=== PATIENT | male | born 1990 | race Caucasian/White ===

== ENCOUNTER 2025-08-02 19:44 | Observation (INO) ==
--- NOTE | 2025-08-02 19:54 | Emergency Department Note ---
Impression & Plan New onset atrial fibrillation, Heart palpitations, Hypotension ED Provider Note NAME: EDGARDO RUELAS AGE: 34 SEX: M : 1990 ARRIVES VIA: Walk-In INFORMANT: The patient himself and his mother. ED PROVIDER(S): Sherita Mancia PA-C, [Rachid Cardozo, DO] CHIEF COMPLAINT: Check heart rate HISTORY OF PRESENTING ILLNESS: The patient is a 34-year-old male with no significant past medical history who presents to the emergency department with complaints of heart palpitations that began a couple of hours ago and are persistent. He was driving when this occurred. He states that he has had heart palpitations before however they have never been this persistent. He also reports an aching chest discomfort that he rates a 2/10. 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 He denies shortness of breath, cardiac history, URI symptoms, abdominal pain, nausea, vomiting. REVIEW OF SYSTEMS: See HPI for pertinent positives and pertinent negatives. ALLERGIES: NKDA MEDICATIONS: Denies currently taking medication. PAST MEDICAL HISTORY: Denies past medical history. PHYSICAL EXAM: VITALS: Vitals are noted on the nurses note and reviewed by myself. Tachycardic. After IV placement hypotensive. GENERAL: 34-year-old male, lying comfortably in bed, in no acute distress, nondiaphoretic, well-developed well-nourished. SKIN: Capillary refill less than 2 seconds. HEENT: Normocephalic. PERRLA. EOMI. Nares patent. Mucous membranes moist. Neck is supple without nuchal rigidity. HEART: Normal S1 and S2. No murmurs, gallops, or rubs. LUNGS: CTA BL without wheezes, rales or rhonchi. No retractions or accessory muscle use. ABDOMEN: Soft, nontender, without masses or organomegaly. No guarding or rebound tenderness. MUSCULOSKELETAL: No gross musculoskeletal defects. No pedal edema. No calf tenderness. NEURO: Patient was alert and oriented to person place and time. No focal neurological deficits. DIFFERENTIAL DIAGNOSIS: Differential diagnosis includes acute coronary syndrome, atrial fibrillation, PVCs, anxiety, pulmonary embolism, thyroid disorder pneumothorax, pericarditis, myocarditis, endocarditis, musculoskeletal pain, GERD, costochondritis, among others. ED COURSE AND MEDICAL DECISION MAKING: MEDICATIONS GIVEN: 1 L normal saline, 1 g magnesium IV, 1 L normal saline, Lopressor 5 mg IV (could not give as patient was hypotensive). MONITOR: Continuous gambling monitor: Order was placed for continuous gambling monitor. Patient was placed on the gambling monitor and continuous pulse ox. Patient was noted to be in normal sinus rhythm at an initial rate of 140 bpm per my interpretation. EKG: EKG was interpreted by myself as atrial fibrillation with RVR. No previous EKG for comparison. No acute ischemic change. The patient does not have a history of atrial fibrillation. QTc 372. INTERPRETATION OF LABS: I interpreted the labs with full lab results as below in the lab section of this note. Pertinent lab results discussed in the MDM section below. INTERPRETATION OF IMAGING: I informally interpreted the patient's chest x-ray which does not show evidence of obvious pneumothorax, consolidation, or pleural effusion and reviewed formal report below. ESCALATION OF CARE CONSIDERED: Escalation of care considered as the patient presents to the ER with new onset A-fib RVR. Patient was hypotensive after IV placement and did not improve with 2 L of fluids. He was given IV magnesium however was not able to receive Lopressor due to his low pressure. He was admitted to medicine for further management and treatment of new onset atrial fibrillation. CONSULTATIONS: On-call [facility] hospitalist - Presented the patient to the provider. They agreed to evaluation and admission. I have personally spent greater than 30 minutes of critical care time in the direct management of this patient. This includes bedside care, interpretation of diagnostic studies, and testing, discussion with consultants, patient, and family members, and other required patient management activities. This 30 minutes is in excess of all separately billable procedures. MDM SUMMARY: I evaluated the 34-year-old male who presents to the emergency department due to chest palpitations that have been persistent, chest discomfort, and left arm aching. See HPI and PE above. Patient initially tachycardic. EKG obtained with a rate of 140 bpm atrial fibrillation with RVR. No previous EKG for comparison. Patient denies history of atrial fibrillation or cardiac history. IV access was established and labs were obtained. When the IV was placed to the patient became diaphoretic and hypotensive. He did not have a syncopal episode. He was given 1 L normal saline and 1 g magnesium IV. Mild leukocytosis 11.33. Hemodynamically stable. Coagulation panel within normal limits. D-dimer<190. No electrolyte abnormality. No RADHA. Magnesium 2.0. Normal LFTs. Troponin 6.6. TSH 2.361. All labs reviewed with the patient. Chest x-ray shows bronchitis, no other findings. No improvement in pressure with 1 L. Additionally a second liter was provided. I did discuss this case with my attending. Patient is stable otherwise and symptoms controlled. This is a new acute onset within the last couple of hours. I do believe attempting medical management is warranted at this time. 5 mg Lopressor ordered however due to patient's hypotension was not able to receive the dose. [place] [address]. After the patient received the second liter of fluids pressure remains 80/50-90/60. I did have a discussion with the patient regarding admission to the hospital for further evaluation and management of atrial fibrillation. He is agreeable and all questions answered. Consultation with on-call hospitalist can be seen in detail above. 3rd L of fluid was ordered by the hospitalist. The patient was admitted in stable condition. DIAGNOSIS: New onset atrial fibrillation, heart palpitations, hypotension The chart was completed utilizing [employer] Speech voice recognition software. Grammatical errors, random word insertions, pronoun errors, and incomplete sentences are an occasional consequence of this system due to software limitations, ambient noise, and hardware issues. Any formal questions or concerns about the content, text, or information contained within the body of this dictation should be directly addressed to the provider for clarification. TREATMENT PLAN/DISCHARGE INSTRUCTIONS: The patient was admitted to medicine. See that note for further management and disposition. Past Med/Surg History Problem List (Updated 08/05/25 @ 15:23 by Sherita Mancia PA-C) Pectus excavatum Hypotension (Acute) Heart palpitations (Acute) New onset atrial fibrillation (Acute) Social History Smoking Status: Never smoker Hx Alcohol Use: No Hx Substance Use: No Preferred Language: Mohawk Communication Ability: Effective Pourer Required: No Beliefs That Will Affect Care: None Current Living Situation: Parent Feels Safe at Home: Yes Assistive Devices: None Allergies Allergies Allergy/AdvReac Type Severity Reaction Status Date / Time No Known Allergies Allergy Unverified 05/26/11 21:00 Home Meds Home Medications Medication Instructions Recorded Confirmed No Known Home Medications 08/02/25 08/02/25 Results & Data (ED) Vital Signs Vital Signs - 24 hr 08/02/25 19:46 Temperature 36.4 C L Temperature Source Temporal Artery Scan Pulse Rate 106 H Pulse Rhythm Regular Pulse Strength Normal Respiratory Rate 18 Respiratory Effort / Characteristics Non-Labored Spontaneous Respiratory Depth Normal Respiratory Pattern Regular Blood Pressure 128/88 Blood Pressure Mean 101 Blood Pressure Position Sitting Pulse Oximetry 95 Oxygen Delivery Method Room Air Sepsis Recent Fever Within 48 Hours No Sepsis New/Unexplained Change in Mental Status N/A Sepsis Action Taken by Nursing No Action Required Laboratory Data 08/03/25 05:45 08/03/25 05:45 Lab Results 08/02/25 08/02/25 Range/Units 19:55 21:01 WBC 11.33 H (4.8-10.8) K/ul RBC 5.09 (4.70-6.10) M/uL Hgb 15.6 (14.0-18.0) g/dL Hct 43.7 (42.0-52.0) % MCV 85.9 (80.0-100.0) fL MCH 30.6 (25.0-34.0) pg MCHC 35.7 (32.0-36.0) g/dL RDW Std Deviation 39.8 (36.4-46.3) fL RDW Coeff of Dragan 12.7 (11.5-14.5) % Plt Count 276 (130-400) K/uL MPV 9.9 (9.4-12.4) fL Immature Gran % (Auto) 0.4 % Neut % (Auto) 66.3 % Lymph % (Auto) 21.6 % [place] % (Auto) 9.5 % Eos % (Auto) 1.8 % Baso % (Auto) 0.4 % Neut # (Auto) 7.50 H (1.40-6.50) K/uL Lymph # (Auto) 2.45 (1.20-3.40) K/uL [place] # (Auto) 1.08 H (0.11-0.59) K/uL Eos # (Auto) 0.20 (0.00-0.50) K/uL Baso # (Auto) 0.05 (0.00-0.20) K/uL Immature Gran # (Auto) 0.05 (0.01-0.20) K/uL PT 10.6 (9.0-12.0) Seconds INR 1.0 (0.9-1.1) APTT 26 (21-31) Seconds PTT Ratio 1.0 D-Dimer < 190 (0-500) ug/L FEU Sodium 140 (136-145) mmol/L Potassium 4.0 (3.5-5.1) mmol/L Chloride 104 (98-107) mmol/L Carbon Dioxide 30 (21-32) mmol/L Anion Gap 6 (3-11) BUN 17 (6-23) mg/dl Creatinine 1.02 (0.6-1.4) mg/dl Est Cr Clr Drug Dosing 114.1 ml/min eGFR 100.15 BUN/Creatinine Ratio 16.7 (10-20) Glucose 94 (70-99(Fasting)) mg/dl Calcium 9.4 (8.6-10.3) mg/dl Magnesium 2.0 (1.7-2.4) mg/dl Total Bilirubin 0.5 (0.2-1.0) mg/dl AST 22 (13-39) U/L ALT 28 (7-52) U/L Alkaline Phosphatase 73 (34-104) U/L Troponin I High Sens 6.6 (0-20) pg/ml Total Protein 7.4 (6.0-8.3) gm/dl Albumin 4.4 (3.4-5.0) gm/dl Globulin 3.0 (2.5-4.0) gm/dl Albumin/Globulin Ratio 1.5 (0.9-2) Lipase 18 (11-82) U/L TSH 2.361 (0.300-4.500) uIu/ml Random Cortisol 10.61 mcg/dl Administered Medications Discontinued Medications Aspirin (Aspirin 81 Mg Ectab) 81 mg PO DAILY ERICA Stop: 09/02/25 08:59 Last Admin: 08/03/25 10:23 Dose: 81 mg Documented By: dll Aspirin (Aspirin 81 Mg Chew) 324 mg PO NOW STA Stop: 08/03/25 00:32 Last Admin: 08/03/25 01:16 Dose: 324 mg Documented By: alt Sodium Chloride (Nss) 1,000 mls @ 999 mls/hr IV .Q1H1M ONE Stop: 08/02/25 21:04 Last Infusion: 08/02/25 21:08 Dose: Infused Documented By: Admin: 08/02/25 20:21 Dose: 999 mls/hr Documented By: CARMEN Magnesium Sulfate/Dextrose (Magnesium Sulfate / D5w) 1 gm in 100 mls @ 100 mls/hr IV NOW STA Stop: 08/02/25 21:07 Last Infusion: 08/02/25 21:25 Dose: Infused Documented By: Admin: 08/02/25 20:21 Dose: 100 mls/hr Documented By: CARMNE Sodium Chloride (Nss) 1,000 mls @ 999 mls/hr IV .Q1H1M ONE Stop: 08/02/25 22:05 Last Infusion: 08/02/25 22:32 Dose: Infused Documented By: Admin: 08/02/25 21:08 Dose: 999 mls/hr Documented By: CARMEN Sodium Chloride (Nss) 1,000 mls @ 999 mls/hr IV .Q1H1M ERICA Stop: 08/02/25 23:22 Last Infusion: 08/03/25 00:17 Dose: Infused Documented By: alt Admin: 08/02/25 22:33 Dose: 999 mls/hr Documented By: CARMEN Lactated Ringer's (Lr) 1,000 mls @ 125 mls/hr IV .Q8H ERICA Stop: 08/03/25 07:41 Last Infusion: 08/03/25 07:49 Dose: Infused Documented By: dll Admin: 08/02/25 23:59 Dose: 125 mls/hr Documented By: alt Metoprolol Tartrate (Metoprolol Tartrate 1 Mg/Ml Vial) 5 mg IV NOW STA Stop: 08/02/25 20:06 Last Admin: 08/02/25 20:22 Dose: Not Given Documented By: CARMEN Discharge Plan Visit Data Chief Complaint: Cardiac Assessment Stated Complaint: CHECK HEART RATE ( 128/86) ED Provider: Rachid Cardozo ED Midlevel Provider: Sherita Mancia Discharge Problem: New onset atrial fibrillation, Heart palpitations, Hypotension Patient Disposition: Admitted As Inpatient Condition: Good Discharge Instructions Interventions: ED Discharge Assessment Last Done: 08/02/25 23:26 Discharge Problem: Hypotension Qualifiers: Hypotension type: unspecified hypotension type Qualified Code(s): I95.9 - Hypotension, unspecified
[2025-08-02] MEDS: MAGNESIUM SULFATE / D5W 1 GM/100 ML BAG IV STA (20:21)
[2025-08-02] MEDS: SODIUM CHLORIDE 0.9% 1,000 ML IV ONE ×2 (20:21→21:08)
[2025-08-02] MEDS: METOPROLOL TARTRATE 1 MG/ML VIAL IV STA (20:22)
[2025-08-02 20:24] LABS: Hematocrit (blood only) 43.7 % (42.0-52.0); Hemoglobin 15.6 g/dL (14.0-18.0); Immature Granulocytes # (auto) 0.05 K/uL (0.01-0.20); Immature Granulocytes % (auto) 0.4 %; Mean Corpuscular Hemoglobin 30.6 pg (25.0-34.0); Mean Corpuscular Volume 85.9 fL (80.0-100.0); Platelet Count 276 K/uL (130-400); RDW Standard Deviation 39.8 fL (36.4-46.3); Red Blood Count 5.09 M/uL (4.70-6.10); White Blood Count 11.33 K/ul (4.8-10.8)
[2025-08-02 20:45] LABS: Alanine Aminotransferase 28.0 U/L (7-52); Albumin Globulin Ratio 1.5 (0.9-2); Albumin Level 4.4 gm/dl (3.4-5.0); Alkaline Phosphatase 73.0 U/L (34-104); Anion Gap 6.0 (3-11); Bilirubin,Total 0.5 mg/dl (0.2-1.0); Blood Urea Nitrogen 17.0 mg/dl (6-23); Calcium 9.4 mg/dl (8.6-10.3); Carbon Dioxide 30.0 mmol/L (21-32); Chloride 104.0 mmol/L (98-107); Creatinine Clr Calc Pharmacy 114.1 ml/min; Globulin 3.0 gm/dl (2.5-4.0); Glucose 94.0 mg/dl (70-99(Fasting)); Lipase 18.0 U/L (11-82); Potassium 4.0 mmol/L (3.5-5.1); Sodium 140.0 mmol/L (136-145); Total Protein 7.4 gm/dl (6.0-8.3)
[2025-08-02 21:02] LABS: INR 1.0 (0.9-1.1); Partial Thromboplastin Time 26 Seconds (21-31); Prothrombin Time 10.6 Seconds (9.0-12.0)
[2025-08-02 22:21] LABS: Magnesium 2.0 mg/dl (1.7-2.4)
--- NOTE | 2025-08-02 22:22 | History & Physical Report ---
Date of Service August 02, 2025 Assessment & Plan (1) New onset atrial fibrillation: (2) Heart palpitations: (3) Hypotension: Plan Patient is a 34-year-old man without significant past medical history. Patient came into the ED due to aching substernal 2/10 chest pain and heart palpitations that have been consistent since . He was found to be in A-fib with RVR, rates as high as 145 in the ED. Patient unfortunately became hypotensive after blood work and reported to be as low as 79/62 in the ED. He is being admitted for new onset A-fib. #New onset a fib - Electrolytes stable, renal function stable, no signs of infectious etiology, Troponin 6.6. - TSH, UA, covid/flu/rsv swab ordered - [id number]-[id number] score 0 = 0.3% stroke risk per year - not recommended to anticoagulate, will defer at this time - HAS-BLED score 0 - loaded with ASA and start daily baby aspirin - echocardiogram ordered - cardiology consulted - will continue IVF and recheck BMP and mag at midnight and with AM labs - if persistently tachycardic after IVF resuscitation - consider digoxin - Continue to monitor on Telemetry #hypotension - likely vasovagal. Improving with IVF. Albumin 4.4. - random cortisol ordered by ED - received 2L NSS bolus in ED, additional 1 L on admission - continue fluid resuscitation with LR @ 125 ml/hr VTE ppx: SCDs, low risk Dispo: PCU, obs - possible dc home 08/03 Admission and Anticipated Discharge Date Admission Date: 08/02/25 History of Present Illness Chief Complaint: cardiac assessment Primary Care Provider: NO PCP Patient is a 34-year-old man without significant past medical history. Patient came into the ED due to aching substernal 2/10 chest pain and heart palpitations that have been consistent since . He was found to be in A-fib with RVR, rates as high as 145 in the ED. Patient unfortunately became hypotensive after blood work and reported to be as low as 79/62 in the ED. He is being admitted for new onset A-fib. Patient seen at bedside with his mother present. He endorses the above. He stated he was going about his normal day and driving when this began. There is nothing out of the ordinary today, he did not engage in any strenuous exercise size, denies any alcohol or drug use. He denies any dizziness, lightheadedness, shortness of breath, nausea, vomiting, diarrhea. He ate usual Thanksgiving dinner yesterday and denies drinking any alcohol. He denies any nicotine use. He denies any past medical history of arrhythmias, heart conditions, thyroid disorders, HTN, DM. He does endorse that his maternal grandparents both have heart arrhythmias and have pacemakers, his maternal grandfather had a heart attack when he was 50. Patient denies any oxygen use at baseline. He does not use any medications at home. He wishes to be full code. Allergies Allergy/AdvReac Type Severity Reaction Status Date / Time No Known Allergies Allergy Unverified 05/26/11 21:00 Home Medications Medication Instructions Recorded Confirmed Type No Known Home Medications 08/02/25 08/02/25 History Past Med/Surg History Problem List (Updated 08/03/25 @ 15:31 by Daryn Hargrove MD) Pectus excavatum Hypotension Heart palpitations New onset atrial fibrillation Social History Smoking Status: Never smoker Hx Alcohol Use: No Hx Substance Use: No Preferred Language: Czech Communication Ability: Effective Store Operations Specialist Required: No Beliefs That Will Affect Care: None Current Living Situation: Parent Feels Safe at Home: Yes Assistive Devices: None Review of Systems Review of Systems: see HPI Physical Exam Physical Exam: The patient is awake, alert and oriented 3, well developed and well nourished, normocephalic and atraumatic, in no acute distress. Non-toxic appearing. HEENT- EOMI, mucous membranes moist. Hearing grossly intact. Heart-normal S1 and S2. No murmurs, rubs or gallops. Lungs-clear bilaterally, no respiratory distress, no accessory muscle use. Abdomen-normal bowel sounds and soft. No ascites noted. Non-tender. Extremities- no clubbing, cyanosis, or edema. Rheumatologic-normal range of motion. Psychiatric-normal affect. Results & Data Results & Data Vital Signs (Past 12 Hours) Vital Signs Temp Pulse Pulse Resp BP BP Pulse Ox 08/02/25 22:05 98/72 L 08/02/25 22:05 98/72 L 08/02/25 22:03 136 H 20 98 08/02/25 22:01 109/59 L 08/02/25 22:01 109/59 L 08/02/25 22:01 109/59 L 08/02/25 22:01 109/59 L 08/02/25 22:01 109/59 L 08/02/25 22:00 133 H 23 98 08/02/25 21:55 104/53 L 08/02/25 21:55 104/53 L 08/02/25 21:55 104/53 L 08/02/25 21:55 104/53 L 08/02/25 21:55 104/53 L 08/02/25 21:54 108 H 23 95 08/02/25 21:51 100 H 17 98 08/02/25 21:50 90/58 L 08/02/25 21:50 90/58 L 08/02/25 21:50 90/58 L 08/02/25 21:50 90/58 L 08/02/25 21:50 90/58 L 08/02/25 21:48 105 H 19 99 08/02/25 21:45 98/60 L 08/02/25 21:45 98/60 L 08/02/25 21:45 98/60 L 08/02/25 21:45 98/60 L 08/02/25 21:45 98/60 L 08/02/25 21:45 116 H 20 98 08/02/25 21:42 106 H 20 100 08/02/25 21:40 102/63 08/02/25 21:40 102/63 08/02/25 21:40 102/63 08/02/25 21:40 102/63 08/02/25 21:40 102/63 08/02/25 21:39 115 H 22 99 08/02/25 21:35 97/66 L 08/02/25 21:35 97/66 L 08/02/25 21:35 97/66 L 08/02/25 21:35 97/66 L 08/02/25 21:35 97/66 L 08/02/25 21:33 105 H 22 99 08/02/25 21:30 96/60 L 08/02/25 21:30 96/60 L 08/02/25 21:30 96/60 L 08/02/25 21:30 96/60 L 08/02/25 21:30 96/60 L 08/02/25 21:30 118 H 24 98 08/02/25 21:25 99/58 L 08/02/25 21:25 99/58 L 08/02/25 21:25 99/58 L 08/02/25 20:31 98 08/02/25 20:21 97 H 22 94 08/02/25 20:20 109/68 08/02/25 20:20 109/68 08/02/25 20:20 109/68 08/02/25 20:20 109/68 08/02/25 20:20 109/68 08/02/25 20:18 99 H 22 98 08/02/25 20:17 104/69 08/02/25 20:17 104/69 08/02/25 20:17 104/69 08/02/25 20:15 79/62 L 08/02/25 20:15 79/62 L 08/02/25 20:15 103 H 22 91 08/02/25 20:15 89 16 79/62 L 95 08/02/25 20:12 104 H 24 99 08/02/25 20:10 98/62 L 08/02/25 20:10 98/62 L 08/02/25 20:10 98/62 L 08/02/25 20:10 98/62 L 08/02/25 20:10 98/62 L 08/02/25 20:09 117 H 19 95 08/02/25 20:06 109/69 08/02/25 20:06 109/69 08/02/25 20:06 109/69 08/02/25 20:06 109/69 08/02/25 20:06 97 H 24 95 08/02/25 20:05 105/58 L 08/02/25 20:03 86 14 96 08/02/25 20:00 84/61 L 08/02/25 20:00 84/61 L 08/02/25 20:00 84/61 L 08/02/25 20:00 84/61 L 08/02/25 20:00 84/61 L 08/02/25 20:00 92 H 18 100 08/02/25 19:54 132 H 23 08/02/25 19:53 145 H 08/02/25 19:51 136/82 08/02/25 19:51 136/82 08/02/25 19:51 136/82 08/02/25 19:51 136/82 08/02/25 19:51 136/82 08/02/25 19:46 36.4 C L 106 H 18 128/88 95 O2 Del Method 08/02/25 22:05 08/02/25 22:05 08/02/25 22:03 08/02/25 22:01 08/02/25 22:01 08/02/25 22:01 08/02/25 22:01 08/02/25 22:01 08/02/25 22:00 08/02/25 21:55 08/02/25 21:55 08/02/25 21:55 08/02/25 21:55 08/02/25 21:55 08/02/25 21:54 08/02/25 21:51 08/02/25 21:50 08/02/25 21:50 08/02/25 21:50 08/02/25 21:50 08/02/25 21:50 08/02/25 21:48 08/02/25 21:45 08/02/25 21:45 08/02/25 21:45 08/02/25 21:45 08/02/25 21:45 08/02/25 21:45 08/02/25 21:42 08/02/25 21:40 08/02/25 21:40 08/02/25 21:40 08/02/25 21:40 08/02/25 21:40 08/02/25 21:39 08/02/25 21:35 08/02/25 21:35 08/02/25 21:35 08/02/25 21:35 08/02/25 21:35 08/02/25 21:33 08/02/25 21:30 08/02/25 21:30 08/02/25 21:30 08/02/25 21:30 08/02/25 21:30 08/02/25 21:30 08/02/25 21:25 08/02/25 21:25 08/02/25 21:25 08/02/25 20:31 Room Air 08/02/25 20:21 08/02/25 20:20 08/02/25 20:20 08/02/25 20:20 08/02/25 20:20 08/02/25 20:20 08/02/25 20:18 08/02/25 20:17 08/02/25 20:17 08/02/25 20:17 08/02/25 20:15 08/02/25 20:15 08/02/25 20:15 08/02/25 20:15 Room Air 08/02/25 20:12 08/02/25 20:10 08/02/25 20:10 08/02/25 20:10 08/02/25 20:10 08/02/25 20:10 08/02/25 20:09 08/02/25 20:06 08/02/25 20:06 08/02/25 20:06 08/02/25 20:06 08/02/25 20:06 08/02/25 20:05 08/02/25 20:03 08/02/25 20:00 08/02/25 20:00 08/02/25 20:00 08/02/25 20:00 08/02/25 20:00 08/02/25 20:00 08/02/25 19:54 08/02/25 19:53 08/02/25 19:51 08/02/25 19:51 08/02/25 19:51 08/02/25 19:51 08/02/25 19:51 08/02/25 19:46 Room Air Laboratory Results Reviewed CBC, PT/INR, d-dimer CMP, troponin ordered mag, TSH, UA, covid/flu/rsv swab Diagnostic Findings reviewed CXR Medications Administered ED - 2L NSS bolus, mag 1 g IV ECG Additional Comments: a fib with rvr, rate 108 qtc 431 Code Status & VTE Plan Code Status full code VTE Prophylaxis Plan VTE Prophylaxis will be ordered: Yes Supervising Physician Co-Signing Physician Notes Attending addendum: I have physically seen this patient, have supervised the medical residents activities, and agree with the H&P unless as otherwise noted. Assessment and Plan: The patient is a 34-year-old male with no significant past medical history who presents to the emergency department complaining of a substernal aching chest pain and palpitations that have been constant since about 2:30 in the afternoon . EKG in the emergency department were atrial fibrillation at a rate of 108 with PVCs, without acute ST-T changes. New onset atrial fibrillation with RVR- Potassium 4.0, magnesium 2.0. Troponin 6.6 Chest x-ray negative The patient will be admitted to telemetry for serial cardiac enzymes, serial EKG's, cardiac rhythm monitoring and a 2-D echocardiogram with Dopplers. Give aspirin 324 mg now, and 81 mg every morning Status post 2 L normal saline bolus in the ED Will give additional 1 L normal saline now, then LR 125 mL/h Address tachycardia primarily with IV fluid rehydration Pressure is borderline in the 90s systolic. Digoxin is an option if heart rate becomes uncontrolled. No indication for cardioversion at this time No alcohol use, Therefore not holiday heart. No family history of cardiac arrhythmias Consult cardiology PG Care Time/CCT Total # of Minutes Spent Total Time Spent with Patient: Total time spent is greater than 50% in coordination of care (as documented) at patient's floor/unit and/or counseling patient: Coding Level of Care Code 12101 INT INP/OBS CARE 3/75MIN Diagnoses New onset atrial fibrillation I48.91 Heart palpitations R00.2 Hypotension I95.9
[2025-08-02] MEDS: SODIUM CHLORIDE 0.9% 1,000 ML IV SCH (22:33)
[2025-08-02 22:37] LABS: Thyroid Stimulating Hormone 2.361 uIu/ml (0.300-4.500)
[2025-08-02 23:39] LABS: Appearance Urine Clear (Clear); Glucose Urine UA Negative (Negative)
[2025-08-02] MEDS ORDERED: ACETAMINOPHEN 325 MG TAB PO PRN (23:42)
[2025-08-02] MEDS ORDERED: DOCUSATE SODIUM 100 MG CAP PO PRN (23:42)
[2025-08-02] MEDS ORDERED: ONDANSETRON INJ 2 MG/ML 2 ML VIAL IV PRN (23:42)
[2025-08-02] MEDS ORDERED: MELATONIN 3 MG TAB PO PRN (23:42)
[2025-08-02 23:48] LABS: Influenza A virus by PCR Negative (Neg); Influenza B virus by PCR Negative (Neg); SARS CoV2 RNA(COVID-19) Ceph NEGATIVE (Negative)
[2025-08-02] MEDS: LACTATED RINGER'S 1,000 ML IV SCH (23:59)
[2025-08-03 01:12] LABS: Anion Gap 6.0 (3-11); Blood Urea Nitrogen 13.0 mg/dl (6-23); Calcium 8.1 mg/dl (8.6-10.3); Carbon Dioxide 26.0 mmol/L (21-32); Chloride 108.0 mmol/L (98-107); Creatinine Clr Calc Pharmacy 126.9 ml/min; Glucose 99.0 mg/dl (70-99(Fasting)); Magnesium 1.9 mg/dl (1.7-2.4); Potassium 3.9 mmol/L (3.5-5.1); Sodium 140.0 mmol/L (136-145)
[2025-08-03] MEDS: ASPIRIN 81 MG CHEW PO STA (01:16)
--- NOTE | 2025-08-03 01:20 | XRay Report ---
Exam(s): XR CXR 1 VIEW EXAM: XR Chest, 1 View CLINICAL HISTORY: Reason for exam: palpitations, chest pain. TECHNIQUE: Frontal view of the chest. COMPARISON: No relevant prior studies available. FINDINGS: Lungs: Mild to moderate peribronchial thickening of the central bronchi. No consolidation. Pleural space: Unremarkable. No pneumothorax. Heart: Unremarkable. No cardiomegaly. Mediastinum: Unremarkable. Normal mediastinal contour. Bones/joints: Unremarkable. No acute fracture. IMPRESSION: Bronchitis, which may be of infectious or inflammatory etiologies. No consolidation or pleural effusion. Electronically signed by: Kristy Aguiar MD 08/03/25 01:19 AM
[2025-08-03 06:35] LABS: Hematocrit (blood only) 40.5 % (42.0-52.0); Hemoglobin 13.9 g/dL (14.0-18.0); Immature Granulocytes # (auto) 0.03 K/uL (0.01-0.20); Immature Granulocytes % (auto) 0.4 %; Mean Corpuscular Hemoglobin 30.2 pg (25.0-34.0); Mean Corpuscular Volume 87.9 fL (80.0-100.0); Platelet Count 223 K/uL (130-400); RDW Standard Deviation 42.1 fL (36.4-46.3); Red Blood Count 4.61 M/uL (4.70-6.10); White Blood Count 8.08 K/ul (4.8-10.8)
[2025-08-03 07:16] LABS: Anion Gap 5.0 (3-11); Blood Urea Nitrogen 11.0 mg/dl (6-23); Calcium 8.4 mg/dl (8.6-10.3); Carbon Dioxide 25.0 mmol/L (21-32); Chloride 110.0 mmol/L (98-107); Creatinine Clr Calc Pharmacy 132.9 ml/min; Glucose 96.0 mg/dl (70-99(Fasting)); Magnesium 1.9 mg/dl (1.7-2.4); Potassium 4.1 mmol/L (3.5-5.1); Sodium 140.0 mmol/L (136-145)
--- NOTE | 2025-08-03 08:22 | Electrocardiogram Report ---
Test Reason : Blood Pressure : */* mmHG Vent. Rate : 140 BPM Atrial Rate : * BPM P-R Int : * ms QRS Dur : 78 ms QT Int : 244 ms P-R-T Axes : * 2 51 degrees QTcB Int : 372 ms Atrial fibrillation with rapid ventricular response Abnormal ECG No previous ECGs available Confirmed by Daryn Hargrove ([id number]) on 08/03/2025 8:22:12 AM Referred By: REFERRED SELF Confirmed By: Daryn Hargrove
[2025-08-03] MEDS: ASPIRIN 81 MG ECTAB PO SCH (10:23)
--- NOTE | 2025-08-03 11:50 | XCELERA ---
[id number]
--- NOTE | 2025-08-03 14:18 | Electrocardiogram Report ---
Test Reason : Blood Pressure : */* mmHG Vent. Rate : 108 BPM Atrial Rate : * BPM P-R Int : * ms QRS Dur : 88 ms QT Int : 322 ms P-R-T Axes : * -8 58 degrees QTcB Int : 431 ms Atrial fibrillation with rapid ventricular response with premature ventricular or aberrantly conducte d complexes Abnormal ECG When compared with ECG of 02-Aug-2025 19:52, No significant change was found Confirmed by Daryn Hargrove ([id number]) on 08/03/2025 2:18:03 PM Referred By: REFERRED SELF Confirmed By: Daryn Hargrove
--- NOTE | 2025-08-03 15:36 | Cardiology Consultation ---
Date of Consultation August 03, 2025 Assessment & Plan (1) New onset atrial fibrillation: (2) Pectus excavatum: Plan 1. Atrial fibrillation: Paroxysmal. Unclear etiology. He is not appear to have any traditional risk factors for atrial fibrillation. Not obese. Not on certain medications. No history of pulmonary disease or obstructive sleep apnea. No recent alcohol use. Thyroid studies are normal. Structurally normal heart without significant valvular heart disease. Mild right atrial dilation on his echocardiogram, this is not a likely substrate for atrial fibrillation. No strong family history of atrial fibrillation to suggest a genetic component. At this point no believe he requires any specific treatment. We can simply monitor for any recurrence or pattern over time. Given his [id number] or of 0, no anticoagulation is necessary. No indication for aspirin either. 2. Pectus excavatum: No reports of exercise intolerance. No breathing difficulty. No obvious compression on his echocardiogram. Unlikely to be associated with atrial fibrillation. History of Present Illness Reason for Consultation: Atrial fibrillation Requesting Physician: Sandrita Attending Physician: Lety Wilder DO History of Present Illness Patient is a 34-year-old gentleman without a significant past medical history who reported an episode of palpitations and mild chest discomfort yesterday afternoon. 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 Chest pain was fairly mild and not described as sharp or stabbing. He did not appear to have associated symptoms such as dizziness or shortness of breath. Due to the persistent nature of the symptoms and the prompting of his sister who is a nurse he proceeded to emergency room for evaluation. He was found to be in atrial fibrillation with rapid ventricular rate. He was also noted to be mildly hypotensive. Again, he did not report symptoms of dizziness or lightheadedness. He was administered some intravenous fluids and monitored overnight. Echocardiogram was obtained this morning. Patient states that he is currently feeling well without symptoms at all. Has been ambulatory around his room without dizziness, lightheadedness or palpitation. Chest pain and palpitations have resolved. In general he is an active individual who did not report any activity limitations or symptoms associated with activity. He cannot recall any history of syncope. No recent alcohol ingestion or use of new medications. He denies history of snoring or sleep disturbance. No family history of atrial fibrillation. Remote history of premature coronary disease in his grandfather. Allergies Allergy/AdvReac Type Severity Reaction Status Date / Time No Known Allergies Allergy Unverified 05/26/11 21:00 Home Medications Medication Instructions Recorded Confirmed Type No Known Home Medications 08/02/25 08/02/25 History Patient History Social History Smoking Status: Never smoker Hx Alcohol Use: No Hx Substance Use: No Preferred Language: [place] Communication Ability: Effective Fire Observer Required: No Beliefs That Will Affect Care: None Current Living Situation: Parent Other Information That Helps Us Care for You: No Feels Safe at Home: Yes Safety Concerns: Feels Safe At This Time Assistive Devices: None Review of Systems Review of Systems: Per HPI. Perhaps some symptoms of palpitations previously that were quite fleeting and infrequent. Physical Exam Physical Exam: The patient is alert and oriented. Mood and affect appeared normal. He answered all questions appropriately. HEENT: Pupils are equal and reactive to light and accommodation. Extraocular movements are intact. The sclerae are anicteric. Neuro: Cranial nerves intact Lungs: Clear to auscultation bilaterally. He has good air movement without use of accessory muscles. No rales wheezes or rhonchi. Cardiac: Heart demonstrates a regular rate and rhythm. Normal S1 and S2. No murmurs on examination. Chest: Pectus excavatum Pulses: The patient has palpable radial pulses bilaterally that are equal in intensity Extremities: There was no evidence of hypoperfusion. There is no cyanosis or clubbing. There is no edema. Skin: I did not appreciate any rashes on examination today. Results & Data Vital Signs (Past 12 Hours) Vital Signs Temp Pulse Pulse Resp BP Pulse Ox O2 Del Method 08/03/25 14:47 83 08/03/25 12:00 36.8 C 86 18 106/71 95 Room Air 08/03/25 08:24 36.8 C 90 19 95/72 L 96 Room Air Laboratory Results Abnormal Lab Results 08/02/25 08/02/25 08/02/25 19:55 21:01 22:54 WBC 11.33 H RBC 5.09 Hgb 15.6 Hct 43.7 MCV 85.9 MCH 30.6 MCHC 35.7 RDW Std Deviation 39.8 RDW Coeff of Dragan 12.7 Plt Count 276 MPV 9.9 Immature Gran % (Auto) 0.4 Neut % (Auto) 66.3 Lymph % (Auto) 21.6 Imperial % (Auto) 9.5 Eos % (Auto) 1.8 Baso % (Auto) 0.4 Neut # (Auto) 7.50 H Lymph # (Auto) 2.45 Imperial # (Auto) 1.08 H Eos # (Auto) 0.20 Baso # (Auto) 0.05 Immature Gran # (Auto) 0.05 PT 10.6 INR 1.0 APTT 26 PTT Ratio 1.0 D-Dimer < 190 Sodium 140 Potassium 4.0 Chloride 104 Carbon Dioxide 30 Anion Gap 6 BUN 17 Creatinine 1.02 Est Cr Clr Drug Dosing 114.1 eGFR 100.15 BUN/Creatinine Ratio 16.7 Glucose 94 Calcium 9.4 Magnesium 2.0 Total Bilirubin 0.5 AST 22 ALT 28 Alkaline Phosphatase 73 Troponin I High Sens 6.6 Total Protein 7.4 Albumin 4.4 Globulin 3.0 Albumin/Globulin Ratio 1.5 Lipase 18 TSH 2.361 Random Cortisol 10.61 Urine Color Urine Appearance Urine pH Ur Specific [place] Urine Protein Urine Glucose (UA) Urine Ketones Urine Blood Urine Nitrite Urine Bilirubin Urine Urobilinogen Ur Leukocyte Esterase Urine Comment SARS-CoV-2 (PCR) NEGATIVE Influenza Type A (PCR) Negative Influenza Type B (PCR) Negative RSV (RT-PCR) Negative 08/02/25 08/03/25 08/03/25 23:28 00:27 05:45 WBC 8.08 RBC 4.61 L Hgb 13.9 L Hct 40.5 L MCV 87.9 MCH 30.2 MCHC 34.3 RDW Std Deviation 42.1 RDW Coeff of Dragan 13.1 Plt Count 223 MPV 10.1 Immature Gran % (Auto) 0.4 Neut % (Auto) 65.0 Lymph % (Auto) 21.9 Imperial % (Auto) 10.9 Eos % (Auto) 1.2 Baso % (Auto) 0.6 Neut # (Auto) 5.25 Lymph # (Auto) 1.77 Imperial # (Auto) 0.88 H Eos # (Auto) 0.10 Baso # (Auto) 0.05 Immature Gran # (Auto) 0.03 PT INR APTT PTT Ratio D-Dimer Sodium 140 140 Potassium 3.9 4.1 Chloride 108 H 110 H Carbon Dioxide 26 25 Anion Gap 6 5 BUN 13 11 Creatinine 0.89 0.85 Est Cr Clr Drug Dosing 126.9 132.9 eGFR 116.77 118.40 BUN/Creatinine Ratio 14.6 12.9 Glucose 99 96 Calcium 8.1 L 8.4 L Magnesium 1.9 1.9 Total Bilirubin AST ALT Alkaline Phosphatase Troponin I High Sens Total Protein Albumin Globulin Albumin/Globulin Ratio Lipase TSH Random Cortisol Urine Color Yellow Urine Appearance Clear Urine pH 6.0 Ur Specific [place] 1.010 Urine Protein Negative Urine Glucose (UA) Negative Urine Ketones Trace H Urine Blood Negative Urine Nitrite Negative Urine Bilirubin Negative Urine Urobilinogen Negative Ur Leukocyte Esterase Negative Urine Comment SARS-CoV-2 (PCR) Influenza Type A (PCR) Influenza Type B (PCR) RSV (RT-PCR) Diagnostic Findings Chest x-ray obtained at the time of admission not reveal any acute cardiopulmonary process Echocardiogram 08/03/2025: Mild right atrial dilation. Normal LV systolic function with ejection fraction of 60 to 65%. No significant valvular heart disease. No other abnormalities PG Care Time/CCT Total # of Minutes Spent Total Time Spent with Patient: Total time spent is greater than 50% in coordination of care (as documented) at patient's floor/unit and/or counseling patient: Coding Level of Care Code 62158 INT INP/OBS CARE 3/75MIN Diagnoses New onset atrial fibrillation I48.91 Pectus excavatum Q67.6
[2025-08-03 15:56] VITALS: BP 107/67; PULSE 80; RESP 19; TEMP 98.1; O2SAT 96
--- NOTE | 2025-08-03 15:57 | Discharge Summary ---
Discharge Summary Date of Service August 03, 2025 Principal Dx & Hospital Course #1 = Principal Diagnosis (1) New onset atrial fibrillation: (2) Heart palpitations: (3) Hypotension: Plan Patient is a 34-year-old man without significant past medical history. Patient came into the ED due to aching substernal 2/10 chest pain and heart palpitations that have been consistent since . He was found to be in A-fib with RV R, rates as high as 145 in the ED. Patient unfortunately became hypotensive after blood work and reported to be as low as 79/62 in the ED. He is being admitted for new onset A-fib. #New onset a fib - Electrolytes stable, renal function stable, no signs of infectious etiology, Troponin 6.6. - TSH, UA, covid/flu/rsv swab ordered - [id number] score 0 = 0.3% stroke risk per year - not recommended to anticoagulate, will defer at this time - HAS-BLED score 0 - loaded with ASA and start daily baby aspirin - echocardiogram ordered - cardiology consulted - will continue IVF and recheck BMP and mag at midnight and with AM labs - if persistently tachycardic after IVF resuscitation - consider digoxin - Continue to monitor on Telemetry 08/03 - patient had an echo with no significant abnormalities - converted to sinus rhythm this AM - low Chadvasc; no need for AC; no aspirin - no need for any other medication #hypotension - likely vasovagal. Improving with IVF. Albumin 4.4. - random cortisol ordered by ED - received 2L NSS bolus in ED, additional 1 L on admission - continue fluid resuscitation with LR @ 125 ml/hr VTE ppx: SCDs, low risk Dispo: PCU, obs - possible dc home 08/03 Admission HPI Per Admitting Provider Patient is a 34-year-old man without significant past medical history. Patient came into the ED due to aching substernal 2/10 chest pain and heart palpitations that have been consistent since . He was found to be in A-fib with RVR, rates as high as 145 in the ED. Patient unfortunately became hypotensive after blood work and reported to be as low as 79/62 in the ED. He is being admitted for new onset A-fib. Patient seen at bedside with his mother present. He endorses the above. He stated he was going about his normal day and driving when this began. There is nothing out of the ordinary today, he did not engage in any strenuous exercise size, denies any alcohol or drug use. He denies any dizziness, lightheadedness, shortness of breath, nausea, vomiting, diarrhea. He ate usual Thanksgiving dinner yesterday and denies drinking any alcohol. He denies any nicotine use. He denies any past medical history of arrhythmias, heart conditions, thyroid disorders, HTN, DM. He does endorse that his maternal grandparents both have heart arrhythmias and have pacemakers, his maternal grandfather had a heart attack when he was 50. Patient denies any oxygen use at baseline. He does not use any medications at home. He wishes to be full code. Discharge Exam VITALS: Reviewed. WEIGHT/BMI reviewed. GEN: Healthy appearing, well-developed, NAD. PSYCH: Good Judgment. AOx3. Normal memory, mood, and affect. HEENT -Head: NC/AT; -Eyes: PERRL, EOMI. No discharge or redness; -Ears: External ears are normal. Normal TMs. -Nose: Normal nares. -Mouth and throat: MMM. Normal gums, mucosa, palate,. Good dentition. NECK: Supple, with no masses. CV: RRR, no m/r/g. LUNGS: CTAB, no w/r/c. ABD: Soft, NT/ND, NBS, no masses or organomegaly. : N/A SKIN: Warm, well perfused. No skin rashes or abnormal lesions. MSK: No deformities, Normal gait. EXT: No clubbing, cyanosis, or edema. NEURO: Ambulating with no limitations. Normal muscle strength and tone. No focal deficits. Discharge Plan Discharge Items Patient Disposition: Home - Self-Care Reason For Visit: NEW ONSET A FIB Discharge Diagnosis: New Onset A. fib Activity: Resume your previous activity Non-emergency contact: Primary Care Provider Call non-emergency contact if: you have any medication questions Follow-up/Referrals: PCP,NO [Primary Care Provider] - Diet: Regular Addtl Attending Provider Instructions: please follow-up with your primary care physician return to the hospital if you have recurrent palpitations Pending Studies at Discharge: No Stand-Alone Forms: My Fibroblast, Work/School Release, Smoking Cessation Medications and DC Order Prescriptions: No Action No Known Home Medications Discharge Orders: Discharge Order (Routine); Ordered 08/03/25 Ordered By: Lety Gomez/Other Patient Handouts: AFib Dc Admission Data Admit Date/Time: 08/02/25 22:28 Attending Provider: Lety Wilder Admit Provider: Bill Shea Primary Care Provider: PCP,NO Other Providers: Bill Shea; Daryn Hargrove Hospital Stay Data Consultations 08/02/25 22:06 ED Decision to Admit Stat 08/02/25 23:42 Consult Cardiology Routine Pending Results Patient Have Any Pending Studies at Discharge: No Discharge Instructions Given to Patient (Per Discharging Provider) please follow-up with your primary care physician return to the hospital if you have recurrent palpitations Home Health Attestation I certify that this patient is under my care and that I, or a physicians esl instructional assistant working with me, had a face to-face encounter that meets the home health [id number] encounter requirements with this patient. The encounter with the patient was in whole, or in part, for the following medical condition, which is the primary reason for home health care (list medical condition): I certify that, based on my findings, the following services are medically necessary home health services: My clinical findings support the need for the above services because: Further, I certify that my clinical findings support that this patient is homebound (i.e. absences from home require considerable and taxing effort and are for medical reasons or bahai services or infrequently or of short duration when for other reasons) because: Certification for Home Health Services: Based on the above findings, I certify that this patient is confined to the home and needs intermittent retirement care, physical therapy and/or speech therapy or continues to need occupational therapy. The patient is under my care, and I have initiated the establishment of the plan of care. This patient will be followed by a physician who will periodically review the plan of care. Total Time Total Time Spent Total Time Spent (In Minutes): 25 minutes Coding Level of Care Code 78443 INP/OBS DISCH >30 MIN Diagnoses New onset atrial fibrillation I48.91 Heart palpitations R00.2 Hypotension I95.9
== END 2025-08-03 16:45 | disposition home or self-care (01) ==
LOC: 2E 19:44 → ED 19:44 → SUATTDRO 22:28 → 2E 23:26